=== PATIENT | male | born 1970 | race Caucasian/White ===

== ENCOUNTER 2024-08-04 14:37 | Inpatient (IN) | payer BC ==
[2024-08-04 15:33] VITALS: BMI 43.7
[2024-08-04] MEDS ORDERED: Nitroglycerin 0.4 MG TAB 1 EACH SL PRN (16:25)
[2024-08-04] MEDS ORDERED: Zolpidem Tartrate 5 MG TAB PO PRN (16:27)
[2024-08-04] MEDS ORDERED: Acetaminophen 325 MG TAB PO PRN (16:28)
[2024-08-04] MEDS ORDERED: Milk Of Magnesia 30 ML UDCUP PO PRN (16:29)
[2024-08-04] MEDS: Docusate 100 MG CAP PO SCH (22:01)
[2024-08-04] MEDS: Atorvastatin Calcium 20 MG TAB PO SCH (22:12)
[2024-08-04] MEDS: Losartan 25 MG TAB PO SCH (22:12)
[2024-08-04] MEDS ORDERED: Losartan 25 MG TAB PO SCH ×2 (22:15)
[2024-08-05 04:40] LABS: Hematocrit 31.9 % (42.0-52.0); Hemoglobin 9.4 g/dL (14.0-18.0); Mean Corpuscular HGB CONC 29.5 g/dL (32.0-36.0); Mean Corpuscular Hemoglobin 21.1 pg (27.0-31.0); Mean Corpuscular Volume 71.5 fL (78.0-98.0); Mean Platelet Volume 11.3 fL (7.4-10.4); Platelet Count 268 10x3/uL (130-400); Red Blood Cell (RBC) Count 4.46 mill/uL (4.70-6.10)
[2024-08-05 05:22] LABS: Anion Gap 13 mmol/L (10-20); BUN (Urea Nitrogen) 12 mg/dL (8.4-25.7); Calc. Creatinine Clearance 223 mL/min (70-130); Calcium 8.7 mg/dL (7.8-10.44); Carbon Dioxide 21 mmol/L (22-29); Chloride 109 mmol/L (98-107); Estimated GFR 108; Glucose 99 mg/dL (70-105); Iron 34 ug/dL (65-175); Iron Binding Capacity, Total 523 mcg/dL (261-462); Potassium 4.1 mmol/L (3.5-5.1); Sodium 139 mmol/L (136-145)
[2024-08-05 05:40] LABS: Ferritin 5.82 ng/mL (22-322)
[2024-08-05] MEDS ORDERED: Atorvastatin Calcium 20 MG TAB PO SCH (09:00)
[2024-08-05] MEDS ORDERED: PROPOFOL 60 ML ONE (10:00)
[2024-08-05] MEDS ORDERED: Midazolam HCl 2 mg/2 ml Vial ONE ×2 (10:01→10:02)
[2024-08-05] MEDS: Aspirin 81 mg Enteric Coated Tablet PO SCH (11:29)
[2024-08-05] MEDS: Ferrous Sulfate 325 MG TAB PO SCH ×2 (13:06→17:03)
[2024-08-05] MEDS: Atorvastatin Calcium 20 MG TAB PO SCH (20:51)
[2024-08-05] MEDS: Losartan 25 MG TAB PO SCH (20:51)
[2024-08-05] MEDS ORDERED: Losartan 25 MG TAB PO SCH (21:00)
[2024-08-06] MEDS ORDERED: Heparin 10,000 UNITS/ 10 ML VIAL ONE (06:12)
[2024-08-06] MEDS ORDERED: Nitroglycerin 50 MG/250 ML BOT 0 ML ONE (06:12)
[2024-08-06] MEDS ORDERED: fentaNYL 50 mcg/mL 1 mL Vial ONE (06:12)
[2024-08-06] MEDS ORDERED: Midazolam HCl 2 mg/2 ml Vial ONE (06:12)
[2024-08-06] MEDS: Sodium Chloride 0.9% 1,000 ML IV SCH ×2 (06:23→08:41)
[2024-08-06] MEDS ORDERED: Protamine Sulfate 50 MG/5 ML VIAL ONE (07:18)
[2024-08-06] MEDS ORDERED: hydrALAZINE 20 MG/ML VIAL ONE ×2 (07:18→07:47)
[2024-08-06] MEDS ORDERED: Sodium Chloride 0.9% 200 ML IV PRN (07:33)
[2024-08-06] MEDS ORDERED: Nitroglycerin 0.4 MG TAB (25 Tab Bottle) SL PRN (07:33)
[2024-08-06] MEDS ORDERED: Acetaminophen/Codeine 30-300mg Tablet PO PRN ×2 (07:33)
[2024-08-06] MEDS ORDERED: Nitroglycerin 4.9 GM Bottle ONE (07:39)
[2024-08-06] MEDS ORDERED: Ondansetron PF 4 MG/2 ML Vial ONE (07:58)
[2024-08-06] MEDS ORDERED: Iron Polysaccharides Complex 150 MG CAP PO SCH (08:00)
[2024-08-06] MEDS: Carvedilol 6.25 MG TAB PO SCH (11:47)
[2024-08-06] MEDS: Sacubitril 24MG/Valsartan 26 MG TAB PO SCH (11:47)
[2024-08-06 15:50] VITALS: BP 133/64; TEMP 98.1
[2024-08-06] MEDS ORDERED: Atorvastatin Calcium 40 MG TAB PO SCH (21:00)
== END 2024-08-06 16:05 | disposition home or self-care (01) | DRG 287 ==
LOC: 2NO 14:37
PROVIDERS: ADMIT Internal Medicine Cardiovascular Disease; ATTEND Internal Medicine Cardiovascular Disease
PROC: 0DB98ZX Excision of Duodenum, Via Natural or Artificial Opening Endoscopic, Diagnostic (ICD-10-PCS; 2024-08-05)
PROC: 4A023N7 Measurement of Cardiac Sampling and Pressure, Left Heart, Percutaneous Approach (ICD-10-PCS; principal; 2024-08-06)
PROC: B2111ZZ Fluoroscopy of Multiple Coronary Arteries using Low Osmolar Contrast (ICD-10-PCS; 2024-08-06)
PROC: B2151ZZ Fluoroscopy of Left Heart using Low Osmolar Contrast (ICD-10-PCS; 2024-08-06)
DX: I25.10 Atherosclerotic heart disease of native coronary artery without angina pectoris (principal); Z68.41 Body mass index [BMI] 40.0-44.9, adult; I42.8 Other cardiomyopathies; D50.9 Iron deficiency anemia, unspecified; E78.00 Pure hypercholesterolemia, unspecified; I10 Essential (primary) hypertension; R73.03 Prediabetes; E66.9 Obesity, unspecified; G47.33 Obstructive sleep apnea (adult) (pediatric); Z79.82 Long term (current) use of aspirin; Z79.899 Other long term (current) drug therapy
CPT/HCPCS: 36415; 71045; 80048; 82607; 82728; 83540; 83550; 85027; 85347; 88305; 93005; 93010; 93458; 99152; C1769; J0360; J1644; J2250; J2405; J2704; J2720; J3010; J7030